=== PATIENT | female | born 1950 | race Caucasian/White ===

== ENCOUNTER → 2018-02-21 | Outpatient (CLI) | payer OTHER ==
[~2018-02-21] MED LIST: ADVAIR HFA115 MCG/21 INH; ALLOPURINOL 10100 M1 PO; AMOXICILLIN875 MG PO; ATENOLOL 50MG T50 M1 PO; BISACODYL SUPP10 MG RECTAL; DEEP SEA NASAL44 M1 NASAL; GEMFIBROZIL 60600 MG PO; IBUPROFEN 800800 MG PO; IPRAT-ALBUT 0.5-3 ML INH; LEVOTHYROXIN0.125 M1 PO; LOPID600 MG PO; MACROBID 100 M100 M1 PO; MACROBID 100 M100 M2 PO; MILK OF MA2400 MG/10 PO; MIRALAX17 GM PO; MUCINEX TA600 MG/TA1 PO; NORCO 5-325 TA1 EACH PO; PEPCID20 MG PO; PERCOCET 5-3251 EACH PO; PREDNISONE 20 M20 M1 PO; PREVACID30 MG PO; PRILOSEC 20 MG20 MG PO; PROMETHAZINE-C120 ML PO; SYMBICORT160 MCG/4. INH; TAMSULOSIN HCL0.4 MG PO; TYLENOL325 MG PO; VITAMIN D3400 UNIT PO; ZOCOR40 MG PO; ZOFRAN ODT4 MG PO
== END ==
LOC: RAD 10:32
DX: N20.0 Calculus of kidney (principal)

== ENCOUNTER 2021-10-03 20:22 | Emergency (ER) | payer OTHER ==
[~2021-10-03] VITALS: Ht 160 cm; Wt 84.8 kg
[2021-10-03 21:29] LABS: ABSOLUTE NEUTROPHILS 4.3 thou/uL (1.4-8.2); BASOPHILS 0.7 % (0.0-2.0); EOSINOPHILS 2.8 % (0.0-3.0); HEMATOCRIT 46.4 % (37.0-47.0); HEMOGLOBIN 15.4 gm/dL (12.0-15.0); LYMPHOCYTES 29.6 % (24.0-44.0); MCHC 33.2 g/dL (28.0-37.0); MCV 87.3 fL (80.0-100.0); MONOCYTES 8.7 % (1.0-8.0); PLATELET COUNT 213 thou/uL (150-400); POLYS 58.2 % (36.0-66.0); RBC 5.32 mil/uL (4.20-5.00); RDW 13.1 % (10.5-14.5); WBC 7.4 thou/uL (4.0-11.0)
[2021-10-03 21:36] LABS: URINE BILIRUBIN NEGATIVE (Negative); URINE BLOOD NEGATIVE (Negative); URINE CLARITY CLEAR; URINE COLOR YELLOW; URINE GLUCOSE-RANDOM* NEGATIVE (Negative); URINE KETONES NEGATIVE (Negative); URINE NITRITE-REFLEX NEGATIVE (Negative); URINE PROTEIN (DIPSTICK) NEGATIVE (Negative); URINE SPECIFIC GRAVITY <= 1.005 (1.005-1.035); URINE UROBILINOGEN 0.2 E.U./dl (0.2-1.0)
[2021-10-03 21:38] LABS: URINE LEUKOCYTES-REFLEX 1+ (Negative)
[2021-10-03 21:44] LABS: CALCIUM 9.6 mg/dL (8.5-10.1); CREATININE 1.2 mg/dL (0.6-1.0)
[2021-10-03 21:47] LABS: BACTERIA-REFLEX 1-9 Few /HPF (None Seen); CASTS None Seen /LPF (None Seen); CRYSTALS None Seen /LPF (None Seen); SQUAMOUS 0-3 Few /LPF (0-3); URINE RBC None Seen /HPF (NONE SEEN); URINE WBC-REFLEX 6-15 Few /HPF (0-5)
[2021-10-03 21:49] LABS: ALBUMIN 3.7 g/dL (3.4-5.0); TOTAL BILIRUBIN 0.2 mg/dL (0.2-1.0); TOTAL PROTEIN 6.9 g/dL (6.4-8.2)
[2021-10-03] MEDS ORDERED: MEDROLDOSEPACK PO ×2 (23:15→23:17)
[2021-10-03] MEDS ORDERED: NORFLEX100 MG PO ×2 (23:15→23:17)
[2021-10-03] MEDS ORDERED: CEPHALEXIN500 MG PO (23:22)
[2021-10-04 00:03] VITALS: BP 127/68
--- NOTE | 2021-10-04 11:15 | EKG ---
[place] [address] [facility] [place] [address] ELECTROCARDIOGRAM REPORT Name: DAMIÁN REYNOLDS [facility] [id number] Admission: 10/03/21 Attend Phys: Discharge: 10/04/21 Date of : 46 Report #: [id number] [facility] ED Test Date: 2021-10-03 Test Time: 20:54:20 Pat Name: DAMIÁN REYNOLDS Department: Room: Gender: F [employer]: : 1950 Requested By: Parish Bobo Order Number: [id number] MD: Fito Calvo Measurements Intervals [place] Rate: 62 P: 14 VT: 141 QRS: -9 QRSD: 93 T: -27 QT: 397 QTc: 404 Interpretive Statements Sinus rhythm Low voltage, precordial leads Nonspecific T abnormalities, diffuse leads Electronically Signed On 10-04-2021 11:15:29 [employer] by Fito Calvo [email or web address] <ELECTRONICALLY SIGNED> By: Fito Calvo MD 10/04/21 1115 [id number] [id number] Fito Calvo MD /EPI
== END 2021-10-04 00:11 | disposition home or self-care (01) ==
LOC: ER 20:22
PROVIDERS: Physician Assistant
DX: N39.0 Urinary tract infection, site not specified (principal); R10.30 Lower abdominal pain, unspecified; E03.9 Hypothyroidism, unspecified; E78.00 Pure hypercholesterolemia, unspecified; I10 Essential (primary) hypertension; K21.9 Gastro-esophageal reflux disease without esophagitis; Z79.899 Other long term (current) drug therapy; Z90.49 Acquired absence of other specified parts of digestive tract; Z88.2 Allergy status to sulfonamides